=== PATIENT | male | born 1960 | race Caucasian/White ===

== ENCOUNTER 2016-06-20 11:16 | Emergency (ER) | payer OTHER ==
--- NOTE | 2016-06-20 12:01 | ED EKG INTERP ---
EKG Interpretation - EKG Time of EKG reading by physician:: 11:37 EKG Read and Signed by:: Steve Coffman EKG Interpretation (*Must complete 3 of following elements*): Normal Rate: 97 Rhythm: NSR [place]: normal QRS: normal NH Interval: normal ST Wave: normal Attestation - Scribe Verification/Attestation Scribe:: Camron Flores Acting as Scribe for:: Steve Coffman Scribe documention review:: This chart was documented by a scribe and accurately reflects the service the provider performed and the decisions made by the provider. Physician Attestation - Physician Attestation I, the provider, attest to the following statement:: Steve Coffman Physician documentation Attestation:: This documentation recorded by the scribe accurately reflects the service I personally performed and the decisions made by me.
[2016-06-20] MEDS ORDERED: ASPIRIN PO STA (12:05)
--- NOTE | 2016-06-20 12:31 | EKG Report ---
Test Performed on : 06/20/2016 11:37:31 AM Test Reason : cp/sob Blood Pressure : / mmHG Vent. Rate : 097 BPM Atrial Rate : 097 BPM P-R Int : 124 ms QRS Dur : 066 ms QT Int : 340 ms P-R-T Axes : 035 045 046 degrees QTc Int : 431 ms Normal sinus rhythm. with sinus arrhythmia. Normal ECG When compared with ECG of 02-NOV-2011 19:34, fusion complexes are no longer present Criteria for Septal infarct are no longer present Unconfirmed Result
--- NOTE | 2016-06-20 12:50 | Diag Imaging Result Document ---
PROCEDURE NAME: CHEST-2 VIEWS - 06/20/2016 2 VIEWS OF THE CHEST: FINDINGS: There is no evidence of acute cardiac or pulmonary disease. The lungs are not as well expanded as they were on 07/14/2012. IMPRESSION: No evidence of acute disease.
--- NOTE | 2016-06-20 13:14 | PROVIDER DOCUMENTATION ---
HPI-General Adult <MiMarkie SheffieldYohan - Last Filed: 06/20/16 15:35> - General Source: patient - History of Present Illness -Gen Adult Nature of Presenting Problems: patient is a 55 y/o M that presents to the ER with right lower rib pain that began last pm suddenly, pt reports pain worse with inspiration. denies n/v, fever/chills, or cough. Location of Pain/Injury: reports: chest (right rib) Pain Radiation: reports: no radiation Quality of Pain: reports: sharp Severity: reports: mild Onset/Duration: reports: abrupt, last night Timing: reports: still present, constant Context/Activities at Onset: reports: none Modifying Factors: worse with: breathing Associated Symptoms: reports: shortness of breath, pain with inspiration, other (rib pain). denies: back/neck pain, chest pain, cough, diarrhea, dizziness, fever/chills, genitourinary problems, nausea, vomiting Similar Symptoms Previously?: No Recently seen or treated by another doctor?: No <Camron Flores - Last Filed: 06/20/16 16:47> - General Chief Complaint: Rib Pain Stated Complaint: CP/SOB Time Seen by Provider: 06/20/16 12:04 Allergies/Adverse Reactions: Patient Allergies Allergy/AdvReac Type Severity Reaction Status Date / Time No Known Allergies Allergy Verified 03/17/16 21:31 Home Medications: Home Medication List Medication Instructions Recorded Confirmed Last Taken Type Esomeprazole [Nexium] 40 mg PO DAILY #30 capsule 03/17/16 06/20/16 06/19/16 Rx Ketorolac [Toradol] 10 mg PO Q8H PRN PRN #14 tablet 06/20/16 Unknown Rx Lisinopril 20 mg PO DAILY 06/20/16 06/20/16 06/19/16 History Lovastatin 20 mg PO DAILY 06/20/16 06/20/16 06/19/16 History Methylprednisolone [Medrol Dosepak] 4 mg PO DIRECTED #1 package 06/20/16 Unknown Rx Review of Systems - Adult - REVIEW OF SYSTEMS - ADULT Constitutional: denies: chills, fever Eyes: denies: decreased vision Ears, Nose, Mouth & Throat: denies: ear pain, sinus problem, throat pain, throat swelling Cardiovascular: reports: chest pain (right rib). denies: palpitations, syncope Respiratory: reports: pleurisy. denies: cough, wheezing Gastrointestinal: denies: abdominal pain, nausea, vomiting Genitourinary: reports: no symptoms reported Musculoskeletal: reports: no symptoms reported Integumentary: reports: no symptoms reported Neurological: reports: no symptoms reported Psychiatric: reports: no symptoms reported Endocrine: reports: no symptoms reported Hematologic/Lymphatic: reports: no symptoms reported Allergic/Immunologic: reports: no symptoms reported All Other Systems: Reviewed and Negative <Camron Flores - Last Filed: 06/20/16 16:47> Past History - Adult - PAST MEDICAL HISTORY-ADULT Review of Records: reports: Old Records Reviewed, Nursing Assessment Review, Medications Reviewed Cardiovascular: reports: HTN, hyperlipidemia Musculoskeletal: reports: chronic pain - PRIOR SURGERIES/PROCEDURES Surgical/Procedure History: reports: orthopedic (extremity) - IMMUNIZATION STATUS Childhood Immunizations: See Nurse Assessment Flu Vaccine: See Nurse Assessment - FAMILY HISTORY Family History: reviewed, not pertinent - SOCIAL HISTORY Smoking: cigarettes, less than 1 pack/day Living Situation: family <Camron Flores - Last Filed: 06/20/16 16:47> Physical Exam-General - PHYSICAL EXAM-ADULT Initial Vital Signs Reviewed: Yes - CONSTITUTIONAL General Appearance: alert, no apparent distress - EYES Eyes: PERRL/EOMI, pink conjunctivae - HEAD, EARS, NOSE, MOUTH & THROAT HENMT: normocephalic/atraumatic, moist mucous membranes, normal ENT inspection - NECK Neck: full range of motion, normal inspection - RESPIRATORY Respiratory: lungs clear, normal breath sounds, no respiratory distress, no accessory muscle use, pain on inspiration, other (tender to left chest wall) - CARDIOVASCULAR Cardiovascular: regular rate, rhythm, no edema, no murmur - GASTROINTESTINAL (ABDOMEN) Abdominal Exam: normal bowel sounds, non tender, soft, no organomegaly, no pulsatile mass - MUSCULOSKELETAL Back Exam: no CVA tenderness, no vertebral tenderness Extremity: normal range of motion, normal inspection, no pedal edema, normal capillary refill, pelvis stable - SKIN Integumentary: normal color, warm/dry - NEUROLOGIC Neurologic: grossly normal, no motor/sensory deficits - PSYCHIATRIC Psych/Mental Status: normal mood/affect, normal thought content, normal thought process, oriented x 3 <Camron Flores - Last Filed: 06/20/16 16:47> Progress - PLAN OF CARE/RESULTS Progress/Plan/Lab Results: Vital Signs Temp Pulse Resp BP Pulse Ox 06/20/16 16:00 77 23 119/71 99 06/20/16 15:00 77 13 114/73 97 06/20/16 11:40 97.7 F 93 H 20 106/64 100 No Known Allergies Allergy (Verified 03/17/16 21:31) Esomeprazole [Nexium] 40 mg PO DAILY #30 capsule 03/17/16 Ketorolac [Toradol] 10 mg PO Q8H PRN PRN #14 tablet 06/20/16 Lisinopril 20 mg PO DAILY 06/20/16 Lovastatin 20 mg PO DAILY 06/20/16 Methylprednisolone [Medrol Dosepak] 4 mg PO DIRECTED #1 package 06/20/16 Laboratory 06/20/16 06/20/16 06/20/16 16:02 16:02 14:00 WBC RBC Hgb Hct MCV MCH MCHC RDW Std Deviation Plt Count MPV Immature Gran % (Auto) Neut % (Auto) Lymph % (Auto) [place] % (Auto) Eos % (Auto) Baso % (Auto) Immature Gran # (Auto) Neut # (Auto) Lymph # (Auto) [place] # (Auto) Eos # (Auto) Baso # (Auto) PT INR PTT (Actin FS) D-Dimer Sodium Potassium Chloride Carbon Dioxide Anion Gap BUN Creatinine Estimated GFR/1.73 m2 BUN/Creatinine Ratio Glucose Calculated Osmolality Calcium Magnesium Total Bilirubin AST ALT Alkaline Phosphatase Creatine Kinase Troponin T < 0.010 Mdt-O-Vwipjjtzlxg Pept Total Protein Albumin Globulin Albumin/Globulin Ratio Lipase Urine Source CLEAN CATCH Urine Color YELLOW Urine Turbidity CLEAR Urine pH 6.5 Ur Specific [place] 1.007 Urine Protein NEGATIVE Ur Glucose (Stick) NEGATIVE Ur Ketones (Stick) NEGATIVE Urine Blood NEGATIVE Urine Nitrite NEGATIVE Urine Bilirubin NEGATIVE Urobilinogen Dipstick NORMAL Urine Leukocytes NEGATIVE Urine WBC (Auto) <10 Urine RBC (Auto) <10 U Epithel Cells (Auto) <10 Urine Bacteria (Auto) NEGATIVE Urine Opiates Screen PRESUMPTIVE POSITIVE A Ur Oxycodone Screen NONE DETECTED Ur Methadone, Qual NONE DETECTED Ur Barbiturates Screen NONE DETECTED Ur Phencyclidine Scrn NONE DETECTED Ur Amphetamines Screen NONE DETECTED U Benzodiazepines Scrn NONE DETECTED Urine Cocaine Screen NONE DETECTED U Cannabinoids Screen PRESUMPTIVE POSITIVE A 06/20/16 06/20/1606/20/17 14:00 14:00 14:00 WBC RBC Hgb Hct MCV MCH MCHC RDW Std Deviation Plt Count MPV Immature Gran % (Auto) Neut % (Auto) Lymph % (Auto) [place] % (Auto) Eos % (Auto) Baso % (Auto) Immature Gran # (Auto) Neut # (Auto) Lymph # (Auto) [place] # (Auto) Eos # (Auto) Baso # (Auto) PT 10.2 INR 0.96 PTT (Actin FS) 33.2 D-Dimer 0.47 Sodium Potassium Chloride Carbon Dioxide Anion Gap BUN Creatinine Estimated GFR/1.73 m2 BUN/Creatinine Ratio Glucose Calculated Osmolality Calcium Magnesium Total Bilirubin AST ALT Alkaline Phosphatase Creatine Kinase Troponin T The-P-Bonriohxgeg Pept 75 Total Protein Albumin Globulin Albumin/Globulin Ratio Lipase Urine Source Urine Color Urine Turbidity Urine pH Ur Specific [place] Urine Protein Ur Glucose (Stick) Ur Ketones (Stick) Urine Blood Urine Nitrite Urine Bilirubin Urobilinogen Dipstick Urine Leukocytes Urine WBC (Auto) Urine RBC (Auto) U Epithel Cells (Auto) Urine Bacteria (Auto) Urine Opiates Screen Ur Oxycodone Screen Ur Methadone, Qual Ur Barbiturates Screen Ur Phencyclidine Scrn Ur Amphetamines Screen U Benzodiazepines Scrn Urine Cocaine Screen U Cannabinoids Screen 06/20/16 06/20/16 14:00 14:00 WBC 11.69 H RBC 4.86 Hgb 15.1 Hct 43.7 MCV 89.9 MCH 31.1 H MCHC 34.6 RDW Std Deviation 12.6 Plt Count 256 MPV 8.9 Immature Gran % (Auto) 0.3 Neut % (Auto) 69.9 Lymph % (Auto) 19.8 L [place] % (Auto) 8.2 Eos % (Auto) 1.2 Baso % (Auto) 0.6 Immature Gran # (Auto) 0.03 Neut # (Auto) 8.17 H Lymph # (Auto) 2.32 [place] # (Auto) 0.96 H Eos # (Auto) 0.14 Baso # (Auto) 0.07 PT INR PTT (Actin FS) D-Dimer Sodium 136 Potassium 4.5 Chloride 97 L Carbon Dioxide 26 Anion Gap 13 BUN 12 Creatinine 1.0 Estimated GFR/1.73 m2 > 60 BUN/Creatinine Ratio 12 Glucose 88 Calculated Osmolality 271 Calcium 9.5 Magnesium 2.1 Total Bilirubin 0.75 AST 12 ALT 19 Alkaline Phosphatase 76 Creatine Kinase 162 Troponin T Mbn-L-Cwkhttevgea Pept Total Protein 7.9 Albumin 4.1 Globulin 3.8 Albumin/Globulin Ratio 1.1 Lipase 14 Urine Source Urine Color Urine Turbidity Urine pH Ur Specific [place] Urine Protein Ur Glucose (Stick) Ur Ketones (Stick) Urine Blood Urine Nitrite Urine Bilirubin Urobilinogen Dipstick Urine Leukocytes Urine WBC (Auto) Urine RBC (Auto) U Epithel Cells (Auto) Urine Bacteria (Auto) Urine Opiates Screen Ur Oxycodone Screen Ur Methadone, Qual Ur Barbiturates Screen Ur Phencyclidine Scrn Ur Amphetamines Screen U Benzodiazepines Scrn Urine Cocaine Screen U Cannabinoids Screen Orders Category Date Time Status Cardiac Monitoring DIRECTED Care 06/20/16 12:05 Active Saline Loc NOW Care 06/20/16 12:05 Active CHEST-2 VIEWS [RAD] Stat Exams 06/20/16 11:42 Completed CBC WITH ELECTRONIC DIFF [HEME] Stat Lab 06/20/16 14:00 Completed CK PROFILE [SP CHEM] Stat Lab 06/20/16 14:00 Completed COMPREHENSIVE METABOLIC PANEL [CHEM] Stat Lab 06/20/16 14:00 Completed D-DIMER [CHEM] Stat Lab 06/20/16 14:00 Completed LIPASE [CHEM] Stat Lab 06/20/16 14:00 Completed MAGNESIUM [CHEM] Stat Lab 06/20/16 14:00 Completed PRO B-NATRIURETIC PEPTIDE Stat Lab 06/20/16 14:00 Completed PROTIME WITH INR [COAG] Stat Lab 06/20/16 14:00 Completed PTT [COAG] Stat Lab 06/20/16 14:00 Completed TROPONIN T Stat Lab 06/20/16 14:00 Completed UA NIMS W/REFLEX CULT [URINALYSIS] Stat Lab 06/20/16 16:02 Completed URINE DRUG SCREEN Stat Lab 06/20/16 16:02 Completed Aspirin Med 06/20/16 12:05 Discontinued 325 mg PO STAT STA Ketorolac [Toradol] Med 06/20/16 14:09 Discontinued 30 mg IV NOW ONE Ketorolac [Toradol] Med 06/20/16 13:47 Discontinued 60 mg IM NOW ONE EKG [EKG] Stat Ther 06/20/16 11:31 Draft - XRAY 1 XRAY Study: Chest Impression: Normal XRAY Interpretation: nml <Camorn Flores - Last Filed: 06/20/16 16:47> Departure - Departure Time of Disposition Order: 15:35 Certified Medical Emergency: Emergent <Markie Stark - Last Filed: 06/20/16 15:35> <Camron Floers - Last Filed: 06/20/16 16:47> - Departure DIAGNOSIS: Pleurisy without effusion Disposition: HOME 01 Condition: Stable Additional Instructions: Heating pad to help with the pain. ED Follow Up Instructions: You have been treated by a care provider in the Emergency Department. These instructions are being provided to you so you can have an understanding of how to care for yourself upon discharge. Upon discharge from the Emergency Department, you are responsible for making arrangements for follow-up care by a physician of your choice. Take all prescribed medications as directed. Return to the Emergency Department immediately for any new or worsening symptoms. You may call the Physician Referral phone number at [phone] to obtain a list of Physicians who are taking new patients. Prescriptions: Methylprednisolone [Medrol Dosepak] 4 mg PO DIRECTED #1 package Ketorolac [Toradol] 10 mg PO Q8H PRN PRN #14 tablet PRN Reason: Pain Referrals: Nicolas Gomez [Primary Care Provider] - Forms: Return to School/Parent Work Instructions: Plechelysy, Gwzz-fk-Behu Attestation - Scribe Verification/Attestation Scribe:: Camron Flores Acting as Scribe for:: Markie Stark Scribe documention review:: This chart was documented by a scribe and accurately reflects the service the provider performed and the decisions made by the provider. - Physician/ TAZ Attestation Patient care was provided by Advanced Practice Provider:: Yes Advanced Practice Provider:: Markie Stark Advanced Practice Provider documentation review:: The Mid-level provider documentation, treatment plan and medical decision making was reviewed by the physician who agrees with all treatment and medical decision making by the MLP. <Camron Flores - Last Filed: 06/20/16 16:47> Physician Attestation - Physician Attestation I, the provider, attest to the following statement:: Markie Stark Physician documentation Attestation:: This documentation recorded by the scribe accurately reflects the service I personally performed and the decisions made by me. <Camron Flores - Last Filed: 06/20/16 16:47>
[2016-06-20] MEDS ORDERED: TORADOL IM ONE (13:47)
[2016-06-20] MEDS ORDERED: TORADOL IV ONE (14:09)
[2016-06-20 14:10] LABS: MANUAL DIFF NEEDED? NO
[2016-06-20 14:16] LABS: BASO% 0.6 % (0.0-0.8); EOS# 0.14 X1000 (0.0-0.7); EOS% 1.2 % (0.0-10.0); HEMATOCRIT 43.7 % (42.0-52.0); HEMOGLOBIN 15.1 g/dL (14.0-18.0); IMM GRAN# 0.03 X1000 (0.0-0.04); IMM GRAN% 0.3 % (0.0-0.5); LYMPH# 2.32 X1000 (1.2-3.4); LYMPH% 19.8 % (20.5-51.1); MCH 31.1 PG (27-31); MCHC 34.6 g/dL (33-37); MCV 89.9 FL (81-99); MONO# 0.96 X1000 (0.11-0.59); MONO% 8.2 % (1.7-9.3); MPV 8.9 FL (7.4-10.4); NEUT% 69.9 % (42.2-75.2); PLT 256 X1000 (130-400); RBC 4.86 XMIL (4.7-6.1)
[2016-06-20 14:27] LABS: INR 0.96; PROTIME 10.2 Seconds (9.2-11.7); PTT 33.2 Seconds (22.0-36.0)
[2016-06-20 14:41] LABS: AGAP 13; ALBUMIN 4.1 g/dL (3.5-5.0); ALKALINE PHOSPHATASE 76 U/L (32-122); BUN 12 mg/dL (8-22); CALCIUM 9.5 mg/dL (8.8-10.2); CHLORIDE 97 mmol/L (98-107); CK PROFILE 162 U/L (24-204); COSMO 271; GOT 12 U/L (10-34); GPT 19 U/L (10-44); LIPASE 14 U/L (13-60); MAGNESIUM 2.1 mg/dL (1.5-2.7); POTASSIUM 4.5 mmol/L (3.5-5.1); SODIUM 136 mmol/L (136-145); TCO2 26 mmol/L (25-35); TOTAL BILIRUBIN 0.75 mg/dL (0.20-1.00); TOTAL PROTEIN 7.9 g/dL (6.3-8.3)
[2016-06-20 16:06] LABS: URINE CULTURE NEEDED? NO; URINE MICRO REVIEW NEEDED? NO; URINE SOURCE CLEAN CATCH
[2016-06-20 16:13] VITALS: BP 119/71
[2016-06-20 16:22] LABS: BILIRUBIN URINE NEGATIVE (NEGATIVE); BLOOD URINE NEGATIVE (NEGATIVE); COLOR YELLOW; GLUCOSE URINE NEGATIVE (NEGATIVE); LEUKOCYTES URINE NEGATIVE (NEGATIVE); NITRITE URINE NEGATIVE (NEGATIVE); PH URINE 6.5; PROTEIN URINE NEGATIVE (NEGATIVE); SP GRAVITY URINE 1.007; TURBIDITY URINE CLEAR (CLEAR); UR EPITHELIAL CELLS <10 /HPF (<10); URINE BACTERIA NEGATIVE /HPF; URINE RBC <10 /HPF (<10); URINE WBC <10 /HPF (<10); UROBILINOGEN URINE NORMAL (NORMAL)
[2016-06-20 16:31] LABS: UR AMPHETAMINES QUAL NONE DETECTED (NONE DETECT); UR BARBITUATES QUAL NONE DETECTED (NONE DETECT); UR BENZODIAZEPIN QUAL NONE DETECTED (NONE DETECT); UR CANNABINOIDS QUAL PRESUMPTIVE POSITIVE (NONE DETECT); UR COCAINE QUAL NONE DETECTED (NONE DETECT); UR METHADONE QUAL NONE DETECTED (NONE DETECT); UR OPIATES QUAL PRESUMPTIVE POSITIVE (NONE DETECT); UR OXYCODONE QUAL NONE DETECTED (NONE DETECT); UR PCP QUAL NONE DETECTED (NONE DETECT)
== END 2016-06-20 16:20 | disposition home or self-care (01) ==
LOC: ED 11:16
DX: J90 Pleural effusion, not elsewhere classified (principal); R07.81 Pleurodynia; I10 Essential (primary) hypertension; E78.5 Hyperlipidemia, unspecified; G89.29 Other chronic pain; F17.210 Nicotine dependence, cigarettes, uncomplicated; Z79.899 Other long term (current) drug therapy
CPT/HCPCS: 71020; 80053; 81001; 82550; 83690; 83735; 83880; 84484; 85025; 85379; 85610; 85730; 93005; G0480; J1885; 80324; 80345; 80346; 80349; 80353; 80358; 80361; 80365; 83992

== ENCOUNTER 2016-06-30 01:50 | Inpatient (IN) ==
--- NOTE | 2016-06-30 02:05 | PROVIDER DOCUMENTATION ---
HPI-Respiratory General - General Source: patient - History of Present Illness-Resp Quality of Pain: reports: tightness Severity in ED: reports: moderate Onset/Duration: reports: just prior to arrival Timing: reports: still present Cough Quality/Degree: reports: moderate, dry cough Current Respiratory Medication Therapy: Initiated none Similar Symptoms Previously?: Yes Recently seen or treated by another doctor?: Yes <Armani Yusuf - Last Filed: 06/30/16 02:24> <Feroz Cali - Last Filed: 06/30/16 05:20> - General Stated Complaint: sob Time Seen by Provider: 06/30/16 02:00 Allergies/Adverse Reactions: Patient Allergies Allergy/AdvReac Type Severity Reaction Status Date / Time No Known Allergies Allergy Verified 03/17/16 21:31 Home Medications: Home Medication List Medication Instructions Recorded Confirmed Last Taken Type Esomeprazole [Nexium] 40 mg PO DAILY #30 capsule 03/17/16 06/30/16 06/29/16 Rx Ketorolac [Toradol] 10 mg PO Q8H PRN PRN #14 tablet 06/20/16 06/30/16 06/29/16 Rx Lisinopril 20 mg PO DAILY 06/20/16 06/30/16 06/29/16 History Lovastatin 20 mg PO DAILY 06/20/16 06/30/16 06/29/16 History Methylprednisolone [Medrol Dosepak] 4 mg PO DIRECTED #1 package 06/20/1606/29/16 Rx Cyclobenzaprine [Flexeril] 10 mg PO BID 06/30/16 06/30/16 06/29/16 History - History of Present Illness-Resp Nature of Presenting Problem: Pt is a 55 y/o M with SOB that began 45 minutes [employer] by EMS. EMS states on scene pt was 100% room air with SBP 126. Pt states he was seen in the ED 10 days ago for SOB and chest pain going to his back. Pt says he was sent home with pain meds and a dose pack. Pt said he felt better for a week and it suddenly came back tonight. Pt states he see Dr Gomez for his chronic back and neck pain. (Armani Yusuf) Review of Systems - Adult - REVIEW OF SYSTEMS - ADULT Constitutional: denies: chills, fever Eyes: reports: no symptoms reported Ears, Nose, Mouth & Throat: reports: no symptoms reported Cardiovascular: denies: chest pain, edema Respiratory: reports: cough, shortness of breath. denies: wheezing Gastrointestinal: reports: no symptoms reported Genitourinary: reports: no symptoms reported Musculoskeletal: reports: back pain (chronic), neck pain (chronic) Integumentary: reports: no symptoms reported Neurological: reports: no symptoms reported Psychiatric: reports: no symptoms reported Endocrine: reports: no symptoms reported Hematologic/Lymphatic: reports: no symptoms reported Allergic/Immunologic: reports: no symptoms reported All Other Systems: Reviewed and Negative <Armani Yusuf - Last Filed: 06/30/16 02:24> Past History - Adult - PAST MEDICAL HISTORY-ADULT Review of Records: reports: Old Records Reviewed, Nursing Assessment Review, Medications Reviewed Cardiovascular: reports: HTN, hyperlipidemia Musculoskeletal: reports: chronic pain - PRIOR SURGERIES/PROCEDURES Surgical/Procedure History: reports: orthopedic (extremity) - IMMUNIZATION STATUS Childhood Immunizations: See Nurse Assessment Flu Vaccine: See Nurse Assessment - FAMILY HISTORY Family History: reviewed, not pertinent - SOCIAL HISTORY Smoking: cigarettes, greater than 1 pack/day (2 ppd) Substance Use: marijuana Living Situation: alone <Armani Ysuuf - Last Filed: 06/30/16 02:24> Physical Exam-General - PHYSICAL EXAM-ADULT Initial Vital Signs Reviewed: Yes - CONSTITUTIONAL General Appearance: alert. negative: appears well (ill in appearance) - EYES Eyes: PERRL/EOMI, pink conjunctivae - HEAD, EARS, NOSE, MOUTH & THROAT HENMT: moist mucous membranes, normal ENT inspection, TMs normal, pharynx normal - NECK Neck: non-tender, full range of motion, supple, normal inspection - RESPIRATORY Respiratory: crackles (Left lower lobe), pain on inspiration - CARDIOVASCULAR Cardiovascular: normal peripheral pulses, regular rate, rhythm - GASTROINTESTINAL (ABDOMEN) Abdominal Exam: normal bowel sounds, soft, distended - MUSCULOSKELETAL Back Exam: normal inspection, no CVA tenderness, no vertebral tenderness Extremity: normal range of motion, non-tender, normal gait, normal inspection - SKIN Integumentary: normal color, normal turgor, warm/dry - NEUROLOGIC Neurologic: grossly normal, no motor/sensory deficits - PSYCHIATRIC Psych/Mental Status: normal mood/affect, normal thought content, normal thought process, oriented x 3 <Armani Yusuf Last Filed: 06/30/16 02:24> Progress - EKG 1 Time of EKG reading by physician:: 02:02 EKG Read and Signed by:: Feroz Cali EKG Interpretation (*Must complete 3 of following elements*): Abnormal Rate: 103 Rhythm: Sinus Tach Comments: Nonspecific T wave abnormality <Armani Yusuf - Last Filed: 06/30/16 02:24> - REASSESSMENT Reassessment #1 Time Reassessed: 05:18 Status: improving - XRAY 1 XRAY Study: Chest (copd chnges /possible lt side pneumonia) - CT/MRI 1 CT Study: Angiogram Impression: Abnormal (rt cavitary lx/lt lingulainfiltrate vs opcity/ possible bone malignancy //no pe), See EMR Report - CONSULTS/PCP/HOSPITALIST Notification #1 *Consult/PCP/Hospitalist*: dr wilcox Time Discussed: 05:20 <Feroz Cali - Last Filed: 06/30/16 05:20> Departure <Armani Yusuf - Last Filed: 06/30/16 02:24> - Departure Time of Disposition Order: 05:18 Certified Medical Emergency: Emergent <Feroz Cali - Last Filed: 06/30/16 05:20> - Departure DIAGNOSIS: Pleurisy without effusion, Pneumonia Disposition: ADMITTED INPATIENT 09 Condition: Stable Referrals: Nicolas Gomez [Primary Care Provider] - Attestation - Scribe Verification/Attestation Scribe:: rAmani Yusuf Acting as Scribe for:: Feroz Cali Scribe documention review:: This chart was documented by a scribe and accurately reflects the service the provider performed and the decisions made by the provider. <Armani Yusuf - Last Filed: 06/30/16 02:24> Physician Attestation
[2016-06-30] MEDS ORDERED: ASPIRIN PO STA (02:25)
[2016-06-30] MEDS ORDERED: XANAX PO ONE (02:28)
[2016-06-30] MEDS ORDERED: ASPIRIN PO ONE (02:28)
[2016-06-30] MEDS ORDERED: SODIUM CHLORIDE 0.9% INJ ONE (02:28)
[2016-06-30] MEDS ORDERED: PROTONIX IV ONE (02:28)
[2016-06-30] MEDS ORDERED: DUONEB (A & A) INH ONE (02:28)
[2016-06-30 03:06] LABS: MANUAL DIFF NEEDED? NO
[2016-06-30 03:10] LABS: BASO% 0.4 % (0.0-0.8); EOS% 2.5 % (0.0-10.0); HEMATOCRIT 43.3 % (42.0-52.0); HEMOGLOBIN 15.1 g/dL (14.0-18.0); IMM GRAN# 0.05 X1000 (0.0-0.04); IMM GRAN% 0.3 % (0.0-0.5); LYMPH# 2.21 X1000 (1.2-3.4); MCH 31.4 PG (27-31); MCHC 34.9 g/dL (33-37); MONO# 1.49 X1000 (0.11-0.59); MONO% 9.4 % (1.7-9.3); MPV 8.5 FL (7.4-10.4); NEUT% 73.4 % (42.2-75.2); PLT 293 X1000 (130-400); RBC 4.81 XMIL (4.7-6.1)
[2016-06-30 03:23] LABS: INR 0.94; PROTIME 9.6 Seconds (9.2-11.7); PTT 26.7 Seconds (22.0-36.0)
[2016-06-30 03:33] LABS: AGAP 15; ALBUMIN 3.8 g/dL (3.5-5.0); ALKALINE PHOSPHATASE 159 U/L (32-122); BUN 14 mg/dL (8-22); CALCIUM 9.6 mg/dL (8.8-10.2); CHLORIDE 99 mmol/L (98-107); CK PROFILE 51 U/L (24-204); COSMO 279; GOT 61 U/L (10-34); GPT 129 U/L (10-44); MAGNESIUM 2.1 mg/dL (1.5-2.7); POTASSIUM 4.9 mmol/L (3.5-5.1); SODIUM 140 mmol/L (136-145); TCO2 26 mmol/L (25-35); TOTAL BILIRUBIN 0.34 mg/dL (0.20-1.00)
[2016-06-30] MEDS: ROCEPHIN 1 GM/NS 50 ML IV ONE ×2 (03:45→04:05)
[2016-06-30 03:54] LABS: ALLEN TEST YES; BE 0.1 mmoll (-3.0-3.0); BLOOD TYPE ARTERIAL; DRAW SITE R RADIAL; METHB 1.6 % (0.0-1.5); O2(CT) 19.3 mL/dL (15.0-23.0); PCO2(98.6) 35 mmHg (35-45); PO2(98.6) 84 mmHg (60-100); SAMPLE BLOOD; SAO2 98.6 % (95.0-100.0); THB 14.7 g/dL (11.5-17.4); pH(98.6) 7.44 (7.35-7.45)
[2016-06-30 04:56] LABS: MODALITY ROOM AIR
--- NOTE | 2016-06-30 06:29 | HISTORY AND PHYSICAL ---
CHIEF COMPLAINT: Shortness of breath x1 week. HISTORY OF PRESENTING ILLNESS: A 55-year-old male with a history of hypertension, COPD, and GERD who presented to the emergency department with a 1-week history of progressive worsening shortness of breath. The patient apparently was in the ER about a week ago and at that time was given some steroids. However, he states that he did not improve. He started having more coughing symptoms and was more short of breath, and subsequently came to the emergency department. At the ER, he was evaluated. He continued to be dyspneic. He had a CAT scan of the chest done which was abnormal, showing suggestion of infiltrates and also the possibilities of malignancy. Due to his presenting symptoms, it was thought that he would need hospitalization for further management. At the time of my examination, he denied any headache, fever, chills, hemoptysis, or melena but complained of chest discomfort and shortness of breath. PAST MEDICAL HISTORY: Hypertension, COPD, GERD, hyperlipidemia. PAST SURGICAL HISTORY: None. ALLERGIES: No known drug allergies. CURRENT MEDICATIONS: As listed in the MAR. SOCIAL HISTORY: An 80 pack year history of smoking. Admits to social alcohol use. Admits to marijuana use. FAMILY HISTORY: No history of coronary artery disease. REVIEW OF SYSTEMS: Twelve point systems listed as in the HPI. Other systems negative. PHYSICAL EXAMINATION: GENERAL: Cooperative, friendly male. He is resting comfortably now. VITAL SIGNS: Temperature 98.1 degrees, pulse 105, respirations 19, blood pressure 114/83, he is saturating 100%. HEENT: Atraumatic, normocephalic. Extraocular movements intact. PERRLA. NECK: No masses. CHEST: Rhonchi. CARDIOVASCULAR: Regular rate and rhythm. ABDOMEN: Soft. Positive bowel sounds. EXTREMITIES: No edema. NEUROLOGIC: He is awake, alert, oriented x3. : No bladder distention. SKIN: Warm. LABORATORIES AND STUDIES: WBCs 15.84, hemoglobin 15.1, hematocrit 43.3, platelets 293,000. Sodium 140, potassium 4.9, chloride 99, CO2 is 26, BUN is 14, creatinine is 0.9, glucose is 87. ASSESSMENT: This is a 55-year-old male with a history of hypertension, chronic obstructive pulmonary disease, and gastroesophageal reflux disease who presented to the emergency department with a 1-week history of worsening shortness of breath. His symptoms were consistent with a chronic obstructive pulmonary disease exacerbation and along with that, he had abnormal CAT scan findings of his chest. Patient will need hospitalization for further management. 1. Chronic obstructive pulmonary disease exacerbation. 2. Chest pain. 3. Suspected pneumonia. 4. Abnormal CT of the chest, suggestive of malignancy. 5. Hypertension. PLAN: 1. We will admit the patient to the medical floor with telemetry. 2. Continue with DuoNebs, IV Solu-Medrol, IV antibiotics. 3. Continue with checking serial cardiac enzymes and echocardiogram. 4. We will check blood cultures and resume antibiotics. 5. We will consult pulmonary for further evaluation of abnormal CT of the chest. 6. We will monitor blood pressure closely and resume antihypertensive agents. 7. We will put patient on DVT prophylaxis with SCDs. 8. We will continue to follow and reassess.
[2016-06-30] MEDS: DUONEB (A & A) INH SCH ×5 (07:30→23:39)
--- NOTE | 2016-06-30 07:59 | Diag Imaging Result Document ---
PROCEDURE NAME: ANGIOGRAM/PULMONARY ARTERIES - 06/30/2016 CT PULMONARY ANGIOGRAM WITH INTRAVENOUS CONTRAST, 06/30/2016: A CT dose reduction protocol was used. COMPARISON: Previous chest x-rays, CT chest 11/02/2011. FINDINGS: Axial CT images of the chest were obtained after administering intravenous contrast. Coronal MIP images were generated. There is no pulmonary embolism. Heart and great vessels are normal. No adenopathy. Upper abdominal images are unremarkable. There is a round pleural-based infiltrate at the superior segment of the left lower lobe. This measures about 3 cm. There is a trace left pleural effusion. There is a small nodular infiltrate at the lateral right lower lobe as well. There is COPD unchanged from prior. Moderate degenerative changes of the thoracic spine. No acute or suspicious bony lesions. IMPRESSION: 1. Bilateral nodular infiltrates in the lungs. Trace left pleural effusion. Findings may represent infection, hematogenously spread septic emboli, or neoplasm. Correlate clinically. Recommend treatment and short-term followup chest CT within [address] [facility]
--- NOTE | 2016-06-30 08:29 | Diag Imaging Result Document ---
PROCEDURE NAME: CHEST-2 VIEWS - 06/30/2016 CHEST X-RAY, 2 VIEWS: COMPARISON: 06/20/2016. FINDINGS: There is a small left retro hilar infiltrate that is nearly impossible to see on chest x-ray, visible on the CT. There is also a small right basilar nodular infiltrate that was present on the previous chest x-ray. IMPRESSION: Small bilateral nodular infiltrates, essentially only visible on the chest CT.
[2016-06-30] MEDS: PRINIVIL PO SCH (09:29)
[2016-06-30] MEDS: PRILOSEC PO SCH (09:30)
[2016-06-30] MEDS: FLEXERIL PO SCH ×2 (09:31→20:32)
[2016-06-30] MEDS: MEVACOR PO SCH (09:31)
[2016-06-30] MEDS: LEVAQUIN 750 MG/D5W 150 ML IV SCH (09:31)
[2016-06-30] MEDS: SOLU-MEDROL IV SCH ×3 (09:32→23:30)
[2016-06-30] MEDS ORDERED: ROBITUSSIN PO PRN (11:26)
[2016-06-30] MEDS ORDERED: BIDEX PO SCH (13:00)
[2016-07-01] MEDS: DUONEB (A & A) INH SCH ×6 (03:47→23:29)
[2016-07-01] MEDS: PRILOSEC PO SCH (06:13)
[2016-07-01 07:11] LABS: HEMATOCRIT 39.6 % (42.0-52.0); HEMOGLOBIN 13.6 g/dL (14.0-18.0); IMM GRAN# 0.03 X1000 (0.0-0.04); IMM GRAN% 0.2 % (0.0-0.5); LYMPH# 0.54 X1000 (1.2-3.4); LYMPH% 3.4 % (20.5-51.1); MANUAL DIFF NEEDED? YES; MCH 30.8 PG (27-31); MCHC 34.3 g/dL (33-37); MCV 89.6 FL (81-99); MONO# 0.44 X1000 (0.11-0.59); MONO% 2.7 % (1.7-9.3); MPV 8.7 FL (7.4-10.4); NEUT% 93.7 % (42.2-75.2); PLT 269 X1000 (130-400); RBC 4.42 XMIL (4.7-6.1)
[2016-07-01 07:34] LABS: AGAP 17; BUN 14 mg/dL (8-22); CALCIUM 9.4 mg/dL (8.8-10.2); CHLORIDE 97 mmol/L (98-107); COSMO 276; POTASSIUM 4.3 mmol/L (3.5-5.1); SODIUM 136 mmol/L (136-145); TCO2 22 mmol/L (25-35)
[2016-07-01 07:59] LABS: BANDS 4 % (0-1); LYMPHS 2 % (21-51)
[2016-07-01] MEDS: PRINIVIL PO SCH (08:20)
[2016-07-01] MEDS: FLEXERIL PO SCH ×2 (08:20→23:56)
[2016-07-01] MEDS: SOLU-MEDROL IV SCH ×3 (08:20→23:56)
[2016-07-01] MEDS: LEVAQUIN 750 MG/D5W 150 ML IV SCH (08:20)
[2016-07-01] MEDS: MEVACOR PO SCH (08:20)
[2016-07-01] MEDS ORDERED: NICODERM PATCH TD PRN (11:56)
--- NOTE | 2016-07-01 14:59 | CONSULTATION ---
DATE OF CONSULTATION: 07/01/2016 REFERRING PHYSICIAN: Dr. Dennis Keith. CHIEF COMPLAINT: Shortness of breath. HISTORY OF PRESENT ILLNESS: This is a 55-year-old male with a past medical history of hypertension, COPD and GERD, that presented to the emergency room with complaints of a 1-week history of shortness of breath. Symptoms have progressively gotten worse and now he has a productive cough. Diagnostics in the ER reveal bilateral infiltrates with a possible neoplasm. The patient has been having also some chest pain associated with his shortness of breath, but denies any headache, fever, chills, hemoptysis or melena. REVIEW OF SYSTEMS: A 10-point review of systems was conducted. Pertinent as noted in the HPI, otherwise noncontributory. PAST MEDICAL HISTORY: As mentioned in HPI, otherwise noncontributory. PAST SURGICAL HISTORY: Denies. ALLERGIES: No known drug allergies. SOCIAL HISTORY: Eighty pack-year history of smoking. Social alcohol consumption and admits to use of marijuana. FAMILY HISTORY: Noncontributory. ACTIVE MEDICATIONS: 1. DuoNebs. 2. Flexeril. 3. Robitussin. 4. Levaquin. 5. Prinivil. 6. Mevacor. 7. Solu-Medrol. 8. Prilosec. PHYSICAL EXAMINATION: Vital Signs: Temperature 98.8, heart rate 104, respiratory rate 16 and blood pressure 115/53, oxygen saturation 98%. General: Awake, alert, sitting up in bed, no acute distress noted. HEENT: Normocephalic and atraumatic. PERRL. Cardiovascular: Regular rate and rhythm. S1, S2 present. Chest: Reduced entry. Abdomen: Soft, nontender. Bowel sounds present. Extremities: No edema. Neurologic: Alert and oriented x3. No focal deficits. LABS/INVESTIGATIONS: WBC 16.09, RBCs 4.42, hemoglobin 13.6, hematocrit 39.6, platelet count 269. Sodium 136, potassium 4.3, chloride 97, carbon dioxide 22, anion gap 17. BUN 14 , creatinine 0.9, glucose 171. A pulmonary arteriogram shows bilateral nodular infiltrates in the lungs, trace left pleural effusion. Findings may represent infection, hematogenous spread septic emboli or neoplasm, and COPD. ASSESSMENT AND PLAN: This is a 55-year-old male with a past medical history mentioned in the history of present illness that presented to the hospital with complaints of dyspnea and cough. Diagnostics show bilateral infiltrates and/or neoplasm and also chronic obstructive pulmonary disease. He is being admitted to the floor with telemetry, inhaled bronchodilators, intravenous steroids, intravenous antibiotics, as well as trend cardiac enzymes and electrocardiograms with an echocardiogram and blood cultures. Continue inhaled bronchodilators, antibiotics, steroids, gastrointestinal prophylaxis. Further recommendations pending diagnostics. The Chest CT images were reviewed, the findings can be observed closely and agree with current regimen. cardiac echo ordered. Dictated by DERECK Wilcox for Valeria Gomes MD MTDD
--- NOTE | 2016-07-01 15:09 | ECHO REPORT ---
ORDER DATE: 07/01/2016 INDICATIONS: Rule out infective endocarditis. FINDINGS: 1. Right atrium appears normal in size at 3.4 cm. 2. There is no significant tricuspid regurgitation identified. 3. Normal RV size and systolic function. 4. No significant pulmonic insufficiency. 5. Normal left atrial size at 3.7 cm. 6. No mitral prolapse. Trace mitral regurgitation. 7. Normal LV size, end-diastolic dimension of 4.5. No evidence of left ventricular hypertrophy. LV systolic function appears to be hyperdynamic with an estimated EF greater than 70%. No segmental wall motion abnormalities. 8. Aortic valve opens well. No evidence of stenosis or insufficiency. 9. The aorta appears normal in visualized segments. 10. No pericardial effusion seen. 11. The patient's heart rate appeared to be in the 100s to 110s during the course of the study.
--- NOTE | 2016-07-01 17:15 | PROGRESS NOTE ---
DATE: 07/01/2016 SUBJECTIVE: This patient states that he is feeling much better. He is not complaining of shortness of breath at this moment. He is still coughing. Pulmonary Department is on board. OBJECTIVE: Vital signs: Temperature 98.8, pulse 110, respiratory rate 15, blood pressure 115/53, oxygen saturation 98 on room air. HEENT: Head normocephalic. No trauma . PERRLA. Neck: Supple. No JVD. No masses. Central trachea. Chest: Bilateral scattered wheezing. No rales. Mild rhonchi at the bases bilaterally. Cardiovascular: Regular rate and rhythm. Tachycardic. No murmurs. Abdomen: Soft, nontender, nondistended. No hepatosplenomegaly. Extremities: No edema. No clubbing. No cyanosis. Neurological examination: The patient is alert and oriented x3. No focal neurological deficits. LABORATORY: WBC 16, hemoglobin 13.6, hematocrit 39.6, platelets 269, sodium 136, potassium 4.3, chloride 97, bicarbonate 22, BUN 14, creatinine 0.9, glucose 171, calcium 9.6. ASSESSMENT AND PLAN: 1. Chronic obstructive pulmonary disease exacerbation. This patient is getting better. Will continue with the same management for now. Pulmonary Department is following this patient. 2. Abnormal CT of the chest suggestive of pneumonia. Will continue with the same treatment. He is not complaining about chest pain or shortness of breath at this moment. Pulmonary Department has evaluated this patient. Pending recommendations. 3. Hypertension, stable. Continue with the same treatment. 4. Suspected pneumonia at the lower lung bases. This patient is already on antibiotics. Will continue with the same management. 5. Gastroesophageal reflux disease. Continue with same treatment.
[2016-07-02] MEDS: DUONEB (A & A) INH SCH ×6 (03:43→23:30)
[2016-07-02] MEDS: LEVAQUIN 750 MG/D5W 150 ML IV SCH (06:40)
[2016-07-02] MEDS: SOLU-MEDROL IV SCH ×3 (06:40→22:18)
[2016-07-02] MEDS: PRILOSEC PO SCH (06:41)
[2016-07-02 07:15] LABS: HEMATOCRIT 40.2 % (42.0-52.0); HEMOGLOBIN 13.7 g/dL (14.0-18.0); IMM GRAN# 0.08 X1000 (0.0-0.04); IMM GRAN% 0.4 % (0.0-0.5); LYMPH# 0.54 X1000 (1.2-3.4); LYMPH% 2.6 % (20.5-51.1); MANUAL DIFF NEEDED? YES; MCH 30.8 PG (27-31); MCHC 34.1 g/dL (33-37); MCV 90.3 FL (81-99); MONO# 0.82 X1000 (0.11-0.59); MONO% 3.9 % (1.7-9.3); MPV 8.9 FL (7.4-10.4); NEUT% 93.1 % (42.2-75.2); PLT 293 X1000 (130-400); RBC 4.45 XMIL (4.7-6.1)
[2016-07-02 07:39] LABS: AGAP 14; BUN 22 mg/dL (8-22); CALCIUM 9.6 mg/dL (8.8-10.2); CHLORIDE 99 mmol/L (98-107); COSMO 280; POTASSIUM 4.4 mmol/L (3.5-5.1); SODIUM 137 mmol/L (136-145); TCO2 24 mmol/L (25-35)
[2016-07-02 07:48] LABS: BANDS 4 % (0-1); LYMPHS 4 % (21-51); MONO 4 % (1-9)
[2016-07-02] MEDS ORDERED: ATIVAN IV ONE (09:15)
[2016-07-02] MEDS: FLEXERIL PO SCH ×2 (09:27→22:18)
[2016-07-02] MEDS: PRINIVIL PO SCH (09:27)
[2016-07-02] MEDS: MEVACOR PO SCH (09:27)
--- NOTE | 2016-07-02 16:03 | PROGRESS NOTE ---
DATE: 07/02/2016 SUBJECTIVE: This patient states that he is feeling better, he is not complaining of shortness of breath at this moment, he is still coughing and Pulmonary Department is on board, he states that during the night he could not sleep and he is asking for some kind of medication. He also is a little bit anxious but he calmed down because he received an Ativan x1. OBJECTIVE: Vital Signs: Temperature 97.6 degrees, pulse 102, respiratory rate 15, blood pressure 110/60, oxygen saturation 97% on 2 L of nasal cannula. HEENT: Head normocephalic. No trauma. PERRLA. Neck: Supple. No JVD. No masses. Central trachea. Chest: Bilateral scattered wheezing, no rales, mild rhonchi at the bases bilaterally. Cardiovascular: RRR. No murmurs. Tachycardic. Abdomen: Soft, nontender, nondistended. No hepatosplenomegaly. Extremities: No edema. No clubbing. No cyanosis. Neurological: The patient is alert and oriented x3. No focal neurological deficits. He looks anxious. LABORATORY: WBC 21.1, hemoglobin 13.7, hematocrit 40.2, platelets 293,000, sodium 137, potassium 4.4, chloride 99, bicarbonate 24, BUN 22, creatinine 0.9, glucose 155, calcium 9.6. ASSESSMENT AND PLAN: 1. COPD exacerbation. This patient is getting better. I will decrease the dose of the steroids from 80 IV t.i.d. to 40 IV t.i.d., and I will decrease the dose slowly. Pulmonary Department is following this patient. 2. Abnormal CT of the chest suggestive of malignancy we will continue with the same management. He is not complaining about chest pain. No shortness of breath at this moment. Pulmonary Department has evaluated this patient. Pending recommendations. 3. Hypertension, stable. Continue with the same management. 4. Suspected pneumonia at the lower lung bases. This patient is already on antibiotics. Will continue with the same management. 5. Gastroesophageal reflux disease. Continue with PPIs. 6. Insomnia. I will add Ambien to his medications p.r.n.
[2016-07-03] MEDS: AMBIEN PO PRN (01:34)
[2016-07-03] MEDS: DUONEB (A & A) INH SCH ×6 (04:09→23:32)
[2016-07-03 05:50] LABS: BASO% 0.1 % (0.0-0.8); EOS# 0.01 X1000 (0.0-0.7); EOS% 0.1 % (0.0-10.0); HEMATOCRIT 39.4 % (42.0-52.0); HEMOGLOBIN 13.4 g/dL (14.0-18.0); IMM GRAN# 0.08 X1000 (0.0-0.04); IMM GRAN% 0.5 % (0.0-0.5); LYMPH# 0.55 X1000 (1.2-3.4); LYMPH% 3.2 % (20.5-51.1); MANUAL DIFF NEEDED? YES; MCH 31.2 PG (27-31); MCV 91.6 FL (81-99); MONO# 0.65 X1000 (0.11-0.59); MONO% 3.7 % (1.7-9.3); MPV 8.9 FL (7.4-10.4); NEUT% 92.4 % (42.2-75.2); PLT 280 X1000 (130-400)
[2016-07-03 05:59] LABS: AGAP 13; BUN 19 mg/dL (8-22); CALCIUM 9.2 mg/dL (8.8-10.2); CHLORIDE 102 mmol/L (98-107); COSMO 282; LYMPHS 6 % (21-51); MONO 2 % (1-9); POTASSIUM 4.9 mmol/L (3.5-5.1); SODIUM 139 mmol/L (136-145); TCO2 24 mmol/L (25-35)
[2016-07-03] MEDS: PRILOSEC PO SCH (06:53)
[2016-07-03] MEDS: SOLU-MEDROL IV SCH (06:53)
[2016-07-03] MEDS: LEVAQUIN 750 MG/D5W 150 ML IV SCH (06:56)
--- NOTE | 2016-07-03 06:59 | EKG Report ---
Test Performed on : 07/02/2016 09:20:54 AM Test Reason : No Order in [employer] Blood Pressure : / mmHG Vent. Rate : 124 BPM Atrial Rate : 124 BPM P-R Int : 118 ms QRS Dur : 086 ms QT Int : 312 ms P-R-T Axes : 063 068 -77 degrees QTc Int : 448 ms Sinus tachycardia. T wave abnormality, consider inferior ischemia Abnormal ECG When compared with ECG of 30-JUN-2016 02:02, (Unconfirmed) Non-specific change in ST segment in Inferior leads Inverted T waves have replaced nonspecific T wave abnormality in Inferior leads Inverted T waves have replaced nonspecific T wave abnormality in Lateral leads Confirmed by Flako MCKENZIE, Oscar Mancuso ([id number]) on 07/05/2016 1:35:57 PM
[2016-07-03] MEDS: MEVACOR PO SCH (08:27)
[2016-07-03] MEDS: FLEXERIL PO SCH ×2 (08:27→23:15)
[2016-07-03] MEDS: PRINIVIL PO SCH (08:27)
--- NOTE | 2016-07-03 18:01 | PROGRESS NOTE ---
DATE: 07/03/2016 SUBJECTIVE: This patient feels much better today. He is not complaining of shortness of breath. He is still coughing but compared with admission it is much better. He still feels anxious and I will put this patient on Xanax low dose p.r.n. OBJECTIVE: Vital Signs: Temperature 97.7 degrees, pulse 112, respiratory rate 15, blood pressure 97/68, oxygen saturation 100% on room air. HEENT: Head normocephalic. No trauma. PERRLA. Neck: Supple. No JVD. No masses. Central trachea. Chest: Bilateral scattered wheezing. Mild rales at the bases. Cardiovascular: RRR. No murmurs. Tachycardic. Abdomen: Soft, nontender, nondistended. No hepatosplenomegaly. Extremities: No edema. No clubbing. No cyanosis. Neurological: The patient is alert and oriented x3. No focal neurological deficits. He looks anxious. LABORATORY: WBC 17.4, hemoglobin 13.4, hematocrit. 39.4, platelets 280,000. Sodium 139, potassium 4.9, chloride 102, bicarbonate 24, BUN 19, creatinine 0.9, glucose 133. ASSESSMENT AND PLAN: 1. Chronic obstructive pulmonary disease exacerbation. This patient is getting better. I switched the dose from IV steroids to p.o. steroids. Pulmonary department is following this patient. We will continue with oxygen, respiratory treatment, and pulmonary toilet. 2. Abnormal CT scan of the chest suggestive of malignancy. We will continue with the same management for now. Pulmonary department is following this patient. Pending recommendations. 3. Hypertension, stable. Continue with the same management. 4. Suspected pneumonia at the lower lung bases. This patient is already on antibiotics. Will continue with the same management. 5. Gastroesophageal reflux disease. Continue with PPIs. 6. Anxiety. He will be on Xanax p.r.n. 7. Insomnia. This patient is on Ambien p.r.n. as well. 8. Overall, this patient is doing much better. He is still tachycardic and probably the increase of the WBC is related to steroid use also. Pulmonary department is following this patient. He has a CT scan that showed a probability of malignancy. If pulmonary department is not going to do any kind of procedure at this moment, probably this patient can be discharged in 1 or 2 days.
[2016-07-04] MEDS: AMBIEN PO PRN (01:04)
[2016-07-04] MEDS: DUONEB (A & A) INH SCH ×2 (04:30→08:04)
[2016-07-04] MEDS: PRILOSEC PO SCH (06:18)
[2016-07-04] MEDS: LEVAQUIN 750 MG/D5W 150 ML IV SCH (06:26)
[2016-07-04 07:15] LABS: MANUAL DIFF NEEDED? NO
[2016-07-04 07:22] LABS: BASO% 0.1 % (0.0-0.8); EOS# 0.04 X1000 (0.0-0.7); EOS% 0.3 % (0.0-10.0); HEMATOCRIT 41.7 % (42.0-52.0); IMM GRAN# 0.14 X1000 (0.0-0.04); LYMPH# 2.74 X1000 (1.2-3.4); LYMPH% 20.1 % (20.5-51.1); MCH 30.8 PG (27-31); MCHC 33.6 g/dL (33-37); MCV 91.6 FL (81-99); MONO# 0.93 X1000 (0.11-0.59); MONO% 6.8 % (1.7-9.3); MPV 8.7 FL (7.4-10.4); NEUT% 71.7 % (42.2-75.2); PLT 302 X1000 (130-400); RBC 4.55 XMIL (4.7-6.1)
[2016-07-04 07:40] LABS: AGAP 12; BUN 21 mg/dL (8-22); CALCIUM 8.9 mg/dL (8.8-10.2); CHLORIDE 101 mmol/L (98-107); COSMO 279; POTASSIUM 4.2 mmol/L (3.5-5.1); SODIUM 138 mmol/L (136-145); TCO2 25 mmol/L (25-35)
[2016-07-04 08:37] VITALS: BP 123/80
--- NOTE | 2016-07-04 08:51 | CONSULTATION ---
DATE OF CONSULTATION: 07/04/2016 CONCLUSION: Patient is admitted to the hospital with bilateral pulmonary nodules. He is feeling better since he has been placed on antibiotics. I think the nodules represent infection rather than a malignancy. The patient has had an echocardiogram and they did not been find any evidence of vegetations involving the valves. Therefore, I do not think that the pulmonary nodules represent a hematogenous pneumonia secondary to endocarditis. RECOMMENDATIONS: The patient seems to be doing quite well on Levaquin. I would suggest switching him to p.o. Levaquin. I think he can be discharged today. I will follow him up in my office in 3 weeks. At that time, I will examine the patient and repeat his CT scan rather than just a chest x- ray because the nodules are small and may be missed if we just do a chest x-ray. DISCUSSION: The patient has a 2 month history of cough and shortness of breath. Initially, he coughed up a yellow sputum. However, this has stopped. His symptoms got worse and worse until he was admitted to the hospital this time and he feels much better since he has been in. As mentioned above, he had a pulmonary angiogram which showed bilateral pulmonary nodules. Chest x- ray showed some nodules also but they were not as clearly seen. Echocardiogram shows no vegetations. Blood cultures are sterile. The patient does have leukocytosis. However, his white count today is 13,650, hemoglobin 14, and platelet count 302,000. Creatinine is 0.9. GFR is greater than 60. PAST MEDICAL HISTORY/REVIEW OF SYSTEMS: Eyes and Ears: The patient has no loss of vision. He states that he has not been able to hear out of his left ear. He went to her personal physician and found that there was wax in the ear and recommended to the patient that he buy some medication across the counter to take care of the wax. Neck: No stiffness. Respiratory: As mentioned above, the patient had been coughing and was short of breath in the last 2 months, and got progressively worse but now he is better since he has been in the hospital. Cardiovascular: No chest pain or palpitations. Psychiatric: The patient has episodes of anxiety and depression. The remainder of the patient's review of systems was completed. GI: No nausea, vomiting, or diarrhea. : No dysuria or flank pain. Bones, Joints, Muscles: No joint swelling or muscle aching. Neurologic: No seizures or motor or sensory loss. Endocrine: The patient told me that he has borderline diabetes. He does not have thyroid disease. The remainder of the patient's review of systems was completed and was negative. PREVIOUS HOSPITALIZATIONS AND OPERATIONS: Has been admitted because of degenerative joint disease in the cervical and lumbar spine. He has had admission for abdominal pain. He has also been admitted because of anxiety and depression. He has had a colonoscopy at which time polyps were removed. MEDICAL DISEASES: Positive for borderline diabetes, hypertension, hyperlipidemia, degenerative joint disease, anxiety and depression, COPD, cigarette smoking. He also has hyperlipidemia. INFECTIOUS DISEASE HISTORY: Negative for pneumonia and UTI. FAMILY HISTORY: Positive for cancer, hypertension, stroke, and intracranial aneurysm. SOCIAL HISTORY: [place] He smokes cigarettes. He plans to stop smoking. He rarely drinks alcoholic beverages. He sometimes smokes marijuana. Does not take any other drugs. He is single. He lives alone. He is disabled. ALLERGIES: His chart lists no known allergies. HOME MEDICATIONS: Include the following: Medrol Dosepak, lovastatin, lisinopril, Toradol, Nexium, and Flexeril. PHYSICAL EXAMINATION: Vital Signs: Temperature is 97.9 degrees, pulse 99, respirations 20, blood pressure 137/73. General: This is a fairly healthy-appearing, middle-aged male who is in no acute distress. Head, Eyes, Ears, Nose, and Throat: Patient had horrible oral hygiene. He was missing many of his teeth and the ones he had, had caries and some were necrotic. The patient could hear when I talked but, as mentioned above, he did tell me that the hearing was reduced in his left ear because of wax buildup. Neck: No meningismus. Thorax: No increased AP diameter of the chest. Lungs: Clear to auscultation. Cardiovascular: Regular heart rate. Abdomen: Soft without masses or tenderness. Neurologic: Patient is alert. He can move his extremities. There is no tremor. His sensation is intact to touch. His memory, as regarding his medical history, was intact. Extremities: Patient had edema of both legs. Integument: No rash noted. Thank you for the consultation.
[2016-07-04] MEDS ORDERED: PREDNISONE PO SCH (09:00)
[2016-07-04] MEDS: FLEXERIL PO SCH (09:17)
[2016-07-04] MEDS: PRINIVIL PO SCH (09:17)
[2016-07-04] MEDS: MEVACOR PO SCH (09:20)
--- NOTE | 2016-07-05 20:06 | DISCHARGE SUMMARY ---
ADMISSION DATE: 06/30/2016 DISCHARGE DATE: 07/04/2016 CONSULTATIONS: 1. Dr. Gomes with Pulmonology. 2. Dr. Anthony Moran with Infectious Disease. PERTINENT PROCEDURES: 1. Echocardiogram showed an EF of greater than 70% with no valve abnormality. No vegetation. 2. Pulmonary arteriogram showed bilateral nodule infiltrates in the lungs, left pleural effusion. Findings may represent infection, and incidentally spread septic emboli or neoplasm. Recommended follow up with a chest CT in 1 month. DISCHARGE DIAGNOSES: 1. Chronic obstructive pulmonary disease exacerbation resolved. 2. Abnormal CT scan of the chest that questions suggestive of malignancy. After speaking with Dr. Anthony Moran he feels that the nodules represent infection rather than a malignancy and the patient will continue on p.o. antibiotics. Echocardiogram did not have any evidence of vegetation involving the valves. Improving. 3. Pneumonia. Patient's white count has improved continue. With p.o. antibiotics with Levaquin and will follow up with Dr. Anthony Moran as well as Dr. Gomes. 4. Hypertension stable. 5. GERD. Continue with PPI. 6. Insomnia while at hospital. HOSPITAL COURSE: Briefly Mr. Peterson is a 55-year-old male with a history of hypertension, COPD, GERD presented to the ED with 1-week history of progressing worsening shortness of breath. He had gone to the ED about a week prior to his admission and was given some steroids however he did not improve. He started having more coughing symptoms, shortness of breath. Came back to the ED where he was evaluated. He continued to be dyspneic. CT of the chest was abnormal showing infiltrate with the possibility of malignancy. The patient was admitted to the hospital, started on IV steroids, bronchodilators as well as IV antibiotics with a consult for Infectious Disease as well as Pulmonology. Echocardiogram did not show any vegetation. Pulmonology agreed with treatment per Dr. Anthony Moran. He felt that the patient was doing quite well on Levaquin and suggested switching him from IV to p.o. Levaquin with discharge home today and followup with him in his office in 3 weeks. At that time, he will do a repeat scan rather than just a chest x-ray because the nodules were small and may be missed if they just do a chest x-ray. The patient's white count has trended down. The patient will also follow up with Dr. Gomes on 07/12. VITAL SIGNS AT THE TIME OF DISCHARGE: Temperature is 97.8 degrees, heart rate 87, respiration 18, blood pressure 123/80. O2 is 100% on room air. DISCHARGE DIET: Regular. DISCHARGE MEDICATIONS: 1. Lisinopril 20 mg p.o. daily. 2. Lovastatin 20 mg p.o. daily. 3. 10 mg p.o. b.i.d. 4. Nexium 40 mg p.o. daily. 5. 1 each p.o. q.6 hours p.r.n. 6. Ambien 5 mg p.o. at bedtime. 7. Levaquin 500 mg p.o. daily. 8. Topamax 25 mg p.o. daily. FOLLOWUP: Patient is being discharged home. He will follow up with his primary care physician in 1 week. He will also follow up with Dr. Gomes on 07/12/[address] Anthony Moran on 07/25/[address] of the chest. The patient can return to the ED for any worsening of symptoms. Discharge time 30 minutes. Dictated by DERECK Dowd for Stephanie Melchor MD
== END 2016-07-04 11:38 | disposition home or self-care (01) | DRG 190 ==
LOC: EDBD → EDSEX → ED 01:50 → EDIPHOLD 07:38 → 3N 15:44
PROVIDERS: ATTEND Internal Medicine
DX: J44.1 Chronic obstructive pulmonary disease with (acute) exacerbation (principal); J18.9 Pneumonia, unspecified organism; J44.0 Chronic obstructive pulmonary disease with (acute) lower respiratory infection; I10 Essential (primary) hypertension; E78.5 Hyperlipidemia, unspecified; K21.9 Gastro-esophageal reflux disease without esophagitis; F17.210 Nicotine dependence, cigarettes, uncomplicated; G47.00 Insomnia, unspecified; F41.9 Anxiety disorder, unspecified; T38.0X5A Adverse effect of glucocorticoids and synthetic analogues, initial encounter; H61.22 Impacted cerumen, left ear; R73.03 Prediabetes; K02.9 Dental caries, unspecified; F32.9 Major depressive disorder, single episode, unspecified; Z80.9 Family history of malignant neoplasm, unspecified; Z82.3 Family history of stroke; Z82.49 Family history of ischemic heart disease and other diseases of the circulatory system; Z79.899 Other long term (current) drug therapy; K08.409 Partial loss of teeth, unspecified cause, unspecified class; M47.812 Spondylosis without myelopathy or radiculopathy, cervical region; M47.816 Spondylosis without myelopathy or radiculopathy, lumbar region
CPT/HCPCS: 71020; 71275; 80048; 80053; 82550; 82805; 83605; 83735; 83880; 84484; 85025; 85379; 85610; 85730; 87040; 93005; 93010; 93306; 94640; 94761; 96365; 96366; 96367; 96375; 96376; C9113; J0696; J2060; J2920; J2930; J7512; Q9967; S0164

== ENCOUNTER 2016-07-06 15:51 | Emergency (ER) ==
[2016-07-06] MEDS ORDERED: NITROGLYCERIN SL PRN (16:16)
[2016-07-06] MEDS ORDERED: ASPIRIN PO STA (16:16)
--- NOTE | 2016-07-06 16:18 | ED EKG INTERP ---
EKG Interpretation - EKG Time of EKG reading by physician:: 15:58 EKG Read and Signed by:: Feroz Cali EKG Interpretation (*Must complete 3 of following elements*): Normal Rate: 102 Rhythm: sinus tachycardia Attestation - Scribe Verification/Attestation Scribe:: Divine Reese Acting as Scribe for:: Feroz Cali Scribe documention review:: This chart was documented by a scribe and accurately reflects the service the provider performed and the decisions made by the provider.
[2016-07-06 16:38] LABS: BASO% 0.1 % (0.0-0.8); EOS# 0.43 X1000 (0.0-0.7); EOS% 2.7 % (0.0-10.0); HEMATOCRIT 47.5 % (42.0-52.0); HEMOGLOBIN 16.4 g/dL (14.0-18.0); LYMPH# 3.23 X1000 (1.2-3.4); LYMPH% 19.9 % (20.5-51.1); MANUAL DIFF NEEDED? NO; MCH 30.9 PG (27-31); MCHC 34.5 g/dL (33-37); MCV 89.6 FL (81-99); MONO# 1.15 X1000 (0.11-0.59); MONO% 7.1 % (1.7-9.3); MPV 8.6 FL (7.4-10.4); NEUT% 70.2 % (42.2-75.2); PLT 309 X1000 (130-400)
[2016-07-06 16:45] LABS: INR 0.99; PROTIME 10.4 Seconds (9.2-11.7); PTT 28.8 Seconds (22.0-36.0)
--- NOTE | 2016-07-06 16:46 | Diag Imaging Result Document ---
PROCEDURE NAME: CHEST-2 VIEWS - 07/06/2016 PA AND LATERAL RADIOGRAPH OF THE CHEST: COMPARISON: 06/30/2016. FINDINGS: There are unremarkable bowel gas and stool patterns. There is no evidence of bowel obstruction. There is no evidence of large volume free abdominal gas. There is no discrete organomegaly. The lungs are grossly clear. The cardiomediastinal silhouette and upper airway are grossly unremarkable. IMPRESSION: No evidence of acute chest or abdominal pathology.
[2016-07-06] MEDS ORDERED: DUONEB (A & A) INH ONE (17:01)
--- NOTE | 2016-07-06 17:08 | PROVIDER DOCUMENTATION ---
HPI-Chest Pain - General Source: patient - History of Present Illness-CP Location: reports: central Chest Pain Radiation: reports: no radiation Quality of Pain: reports: other (soreness) Onset/Duration: 1-3 hours ago Timing: gone now Context/Activities at Onset: reports: other (showering) Modifying Factors: improves with: nothing Associated Symptoms: denies: diaphoresis, fever/chills, nausea, vomiting Prior Chest Pain/Cardiac Workup: reports: stress test (negative) <Luz Elena Zhang - Last Filed: 07/06/16 18:07> <Leslee Acosta - Last Filed: 07/06/16 18:44> <Emily Griffiths - Last Filed: 07/06/16 19:17> - General Chief Complaint: Chest Pain Stated Complaint: Chest pain,Recent dx of pneumonia Time Seen by Provider: 07/06/16 16:05 Allergies/Adverse Reactions: Patient Allergies Allergy/AdvReac Type Severity Reaction Status Date / Time No Known Allergies Allergy Verified 07/06/16 16:10 Home Medications: Home Medication List Medication Instructions Recorded Confirmed Last Taken Type Esomeprazole [Nexium] 40 mg PO DAILY #30 capsule 03/17/16 07/06/16 06/29/16 Rx Lisinopril 20 mg PO DAILY 06/20/16 07/06/16 07/06/16 History Lovastatin 20 mg PO DAILY 06/20/16 07/06/16 07/06/16 History Cyclobenzaprine [Flexeril] 10 mg PO BID 06/30/16 07/06/16 07/06/16 History Butalbital/APAP/Caffeine [Fioricet] 1 each PO Q6H PRN #30 tablet 07/04/1607/06/16 Rx Levofloxacin [Levaquin] 500 mg PO DAILY #20 tablet 07/04/16 07/06/16 07/06/16 Rx Topiramate [Topamax] 25 mg PO DAILY #30 tablet 07/04/16 07/06/16 07/06/16 Rx Zolpidem [Ambien] 5 mg PO QHS #30 tablet 07/04/16 07/06/16 07/06/16 Rx - History of Present Illness-CP Nature of Presenting Problem: 55 y/o M former smoker with history of HTN, COPD, migraines presents via EMS after an episode of chest pain that occurred at approximately 2:30pm. Patient states he was taking a shower when he experienced SOB, soreness in central chest , dizziness. These symptoms made him anxious and he began experiencing tingling in all of his extremities. Symptoms lasted approx 30 minutes. He was discharged from [facility] 2 days ago for PNA. Patient states he had a negative stress test while in the hospital and has scheduled follow up with Dr. Martínez tomorrow. Upon review of chart, there is no record of cardiology consult or stress test, however he did have an echocardiogram which was normal. (Luz Elena Zhang) Review of Systems - Adult - REVIEW OF SYSTEMS - ADULT Constitutional: reports: no symptoms reported. denies: chills, fever Eyes: reports: no symptoms reported. denies: decreased vision, blurred vision Ears, Nose, Mouth & Throat: reports: no symptoms reported. denies: ear pain, hearing loss Cardiovascular: reports: see HPI Respiratory: reports: shortness of breath. denies: cough, dyspnea on exertion, pleurisy, wheezing Gastrointestinal: reports: no symptoms reported. denies: abdominal pain, nausea , vomiting Genitourinary: reports: no symptoms reported Musculoskeletal: reports: no symptoms reported. denies: back pain, neck pain Integumentary: reports: no symptoms reported. denies: itching, rash Neurological: reports: dizziness/vertigo, headache/migraines (history of migraines, denies GOMEZ currently). denies: numbness, paresthesia Psychiatric: reports: no symptoms reported Endocrine: reports: no symptoms reported Hematologic/Lymphatic: reports: no symptoms reported. denies: blood clots Allergic/Immunologic: reports: no symptoms reported All Other Systems: Reviewed and Negative <Luz Elena Zhang - Last Filed: 07/06/16 18:07> Past History - Adult - PAST MEDICAL HISTORY-ADULT Review of Records: reports: Nursing Assessment Review, Medications Reviewed Cardiovascular: reports: HTN, hyperlipidemia Musculoskeletal: reports: chronic pain - PRIOR SURGERIES/PROCEDURES Surgical/Procedure History: reports: orthopedic (extremity) - IMMUNIZATION STATUS Childhood Immunizations: See Nurse Assessment Flu Vaccine: See Nurse Assessment - FAMILY HISTORY Family History: reviewed, not pertinent <Luz Elena Zhang - Last Filed: 07/06/16 18:07> Physical Exam-General - PHYSICAL EXAM-ADULT Initial Vital Signs Reviewed: Yes - CONSTITUTIONAL General Appearance: appears well, alert, no apparent distress - EYES Eyes: PERRL/EOMI, pink conjunctivae - HEAD, EARS, NOSE, MOUTH & THROAT HENMT: normocephalic/atraumatic, moist mucous membranes - NECK Neck: non-tender, full range of motion, supple - RESPIRATORY Respiratory: chest non-tender, lungs clear, normal breath sounds, no pleuratic chest pain, no respiratory distress, no accessory muscle use - CARDIOVASCULAR Cardiovascular: normal peripheral pulses, regular rate, rhythm, no edema - GASTROINTESTINAL (ABDOMEN) Abdominal Exam: normal bowel sounds, non tender, soft - LYMPHATIC Lymphatic: no adenopathy - MUSCULOSKELETAL Back Exam: normal inspection Extremity: non-tender, normal inspection. 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 negative: facial droop, focal weakness, motor weakness, sensory deficit - PSYCHIATRIC Psych/Mental Status: normal mood/affect, normal thought content, normal thought process, oriented x 3 <Luz Elena Zhang - Last Filed: 07/06/16 18:07> Progress - REASSESSMENT Reassessment #1 Time Reassessed: 17:56 (Discussed with Dr. Cali, who recommends reassessment of patient after fluid bolus, repeat troponin and ekg, and follow up on serum lactate results.) Status: unchanged <Luz Elena Zhang - Last Filed: 07/06/16 18:07> - EKG 1 Time of EKG reading by physician:: 18:29 EKG Read and Signed by:: Armani Yen EKG Interpretation (*Must complete 3 of following elements*): Normal Rate: 94 Rhythm: NSR [place]: normal <Leslee Acosta - Last Filed: 07/06/16 18:44> <Emily Griffiths - Last Filed: 07/06/16 19:17> - PLAN OF CARE/RESULTS Progress/Plan/Lab Results: 07/06/16: Discussed patient with SHARI Malloy who will assume care and follow up on pending labs and dispo patient. Patient also discussed with Dr. Jarrod chua. (Luz Elena Zhang) Vital Signs Temp Pulse Pulse Pulse Pulse Resp BP 07/06/16 18:28 103 H 18 107/61 07/06/16 17:27 105 H 20 07/06/16 17:16 102 H 112 H 97 H 07/06/16 16:05 97.5 F L 105 H 20 121/84 BP BP BP Pulse Ox 07/06/16 18:28 99 07/06/16 17:27 07/06/16 17:16 103/70 92/73 92/62 07/06/16 16:05 99 No Known Allergies Allergy (Verified 07/06/16 16:10) Esomeprazole [Nexium] 40 mg PO DAILY #30 capsule 03/17/16 Lisinopril 20 mg PO DAILY 06/20/16 Lovastatin 20 mg PO DAILY 06/20/16 Cyclobenzaprine [Flexeril] 10 mg PO BID 06/30/16 Butalbital/APAP/Caffeine [Fioricet] 1 each PO Q6H PRN #30 tablet 07/04/16 Levofloxacin [Levaquin] 500 mg PO DAILY #20 tablet 07/04/16 Topiramate [Topamax] 25 mg PO DAILY #30 tablet 07/04/16 Zolpidem [Ambien] 5 mg PO QHS #30 tablet 07/04/16 I&O 07/05/16 07/06/16 07/07/16 06:59 06:59 06:59 Output Total 50 Balance -50 Laboratory 07/06/16 07/06/16 07/06/16 18:20 18:15 18:15 WBC RBC Hgb Hct MCV MCH MCHC RDW Std Deviation Plt Count MPV Neut % (Auto) Lymph % (Auto) [place] % (Auto) Eos % (Auto) Baso % (Auto) Neut # (Auto) Lymph # (Auto) [place] # (Auto) Eos # (Auto) Baso # (Auto) PT INR PTT (Actin FS) Sodium Potassium Chloride Carbon Dioxide Anion Gap BUN Creatinine Estimated GFR/1.73 m2 BUN/Creatinine Ratio Glucose Calculated Osmolality Calcium Magnesium Total Bilirubin AST ALT Alkaline Phosphatase Creatine Kinase 46 Troponin T < 0.010 Awx-R-Tnccrbyeibw Pept Total Protein Albumin Globulin Albumin/Globulin Ratio Plasma Lactate Urine Source CLEAN CATCH Urine Color STRAW Urine Turbidity CLEAR Urine pH 6.5 Ur Specific [place] 1.006 Urine Protein NEGATIVE Ur Glucose (Stick) NEGATIVE Ur Ketones (Stick) NEGATIVE Urine Blood NEGATIVE Urine Nitrite NEGATIVE Urine Bilirubin NEGATIVE Urobilinogen Dipstick NORMAL Urine Leukocytes NEGATIVE Urine WBC (Auto) <10 Urine RBC (Auto) <10 U Epithel Cells (Auto) <10 Urine Bacteria (Auto) NEGATIVE 07/06/16 07/06/16 07/06/16 17:50 16:07 16:07 WBC RBC Hgb Hct MCV MCH MCHC RDW Std Deviation Plt Count MPV Neut % (Auto) Lymph % (Auto) Hyde % (Auto) Eos % (Auto) Baso % (Auto) Neut # (Auto) Lymph # (Auto) Hyde # (Auto) Eos # (Auto) Baso # (Auto) PT 10.4 INR 0.99 PTT (Actin FS) 28.8 Sodium Potassium Chloride Carbon Dioxide Anion Gap BUN Creatinine Estimated GFR/1.73 m2 BUN/Creatinine Ratio Glucose Calculated Osmolality Calcium Magnesium Total Bilirubin AST ALT Alkaline Phosphatase Creatine Kinase Troponin T < 0.010 Efe-A-Juvvjlquuri Pept Total Protein Albumin Globulin Albumin/Globulin Ratio Plasma Lactate 1.4 Urine Source Urine Color Urine Turbidity Urine pH Ur Specific [place] Urine Protein Ur Glucose (Stick) Ur Ketones (Stick) Urine Blood Urine Nitrite Urine Bilirubin Urobilinogen Dipstick Urine Leukocytes Urine WBC (Auto) Urine RBC (Auto) U Epithel Cells (Auto) Urine Bacteria (Auto) 07/06/16 07/06/16 07/06/16 16:07 16:07 16:07 WBC 16.21 H RBC 5.30 Hgb 16.4 Hct 47.5 MCV 89.6 MCH 30.9 MCHC 34.5 RDW Std Deviation 12.6 Plt Count 309 MPV 8.6 Neut % (Auto) 70.2 Lymph % (Auto) 19.9 L Hyde % (Auto) 7.1 Eos % (Auto) 2.7 Baso % (Auto) 0.1 Neut # (Auto) 11.39 H Lymph # (Auto) 3.23 Hyde # (Auto) 1.15 H Eos # (Auto) 0.43 Baso # (Auto) 0.01 PT INR PTT (Actin FS) Sodium 133 L Potassium 4.7 Chloride 95 L Carbon Dioxide 23 L Anion Gap 15 BUN 22 Creatinine 1.0 Estimated GFR/1.73 m2 > 60 BUN/Creatinine Ratio 22 Glucose 87 Calculated Osmolality 269 Calcium 9.1 Magnesium 2.2 Total Bilirubin 0.58 AST 38 H ALT 261 H Alkaline Phosphatase 133 H Creatine Kinase 53 Troponin T Nvt-J-Lfethxqkldr Pept 18 Total Protein 6.6 Albumin 3.5 Globulin 3.1 Albumin/Globulin Ratio 1.1 Plasma Lactate Urine Source Urine Color Urine Turbidity Urine pH Ur Specific [place] Urine Protein Ur Glucose (Stick) Ur Ketones (Stick) Urine Blood Urine Nitrite Urine Bilirubin Urobilinogen Dipstick Urine Leukocytes Urine WBC (Auto) Urine RBC (Auto) U Epithel Cells (Auto) Urine Bacteria (Auto) Orders Category Date Time Status Cardiac Monitoring DIRECTED Care 07/06/16 16:16 Active Orthostatic Vital Signs NOW Care 07/06/16 17:09 Active Saline Loc NOW Care 07/06/16 16:16 Active CHEST-2 VIEWS [RAD] Stat Exams 07/06/16 16:16 Draft CBC WITH ELECTRONIC DIFF [HEME] Stat Lab 07/06/16 16:07 Completed CK PROFILE [SP CHEM] Stat Lab 07/06/16 16:07 Completed CK PROFILE [SP CHEM] Stat Lab 07/06/16 18:15 Completed COMPREHENSIVE METABOLIC PANEL [CHEM] Stat Lab 07/06/16 16:07 Completed LACTATE, PLASMA [CHEM] Stat Lab 07/06/16 17:50 Completed MAGNESIUM [CHEM] Stat Lab 07/06/16 16:07 Completed PRO B-NATRIURETIC PEPTIDE Stat Lab 07/06/16 16:07 Completed PROTIME WITH INR [COAG] Stat Lab 07/06/16 16:07 Completed PTT [COAG] Stat Lab 07/06/16 16:07 Completed TROPONIN T Stat Lab 07/06/16 16:07 Completed TROPONIN T Stat Lab 07/06/16 18:15 Completed UA Reflex [URINALYSIS W/POSS RFLX CULT] [URINALYSIS] Lab 07/06/16 18:20 Completed Stat 0.9% Sodium Chloride Inj [Ns] 1,000 ml Med 07/06/16 17:19 Discontinued IV 999 mls/hr Albuterol 2.5MG/Ipratrop 0.5MG [Duoneb (A & A)] Med 07/06/16 17:01 Discontinued 3 ml INH NOW ONE Aspirin Med 07/06/16 16:16 Discontinued 325 mg PO STAT STA Nitroglycerin Sl [Nitroglycerin] Med 07/06/16 16:16 Active 0.4 mg SL Q5M PRN PRN Aerosol Treatments Routine Oth 07/06/16 17:01 Completed Aerosol Treatments Stat Oth 07/06/16 17:01 Completed EKG [EKG] Stat Ther 07/06/16 16:16 Ordered EKG [EKG] Stat Ther 07/06/16 18:06 Ordered discussed findings with patient. States he is feeling much better. Verbalized understanding and agreement to follow up (Emily Griffiths) Departure <Luz Elena Zhang - Last Filed: 07/06/16 18:07> <Leslee Acosta - Last Filed: 07/06/16 18:44> - Departure Time of Disposition Order: 19:10 Certified Medical Emergency: Emergent <Emily Griffiths - Last Filed: 07/06/16 19:17> - Departure DIAGNOSIS: Elevated liver enzymes, Atypical chest pain Hypotension Qualifiers: Hypotension type: orthostatic hypotension Qualified Code(s): I95.1 - Orthostatic hypotension Disposition: HOME 01 Condition: Stable Additional Instructions: Follow up with Dr. Martínez as planned tomorrow Follow up with Dr. Arellano for your liver ED Follow Up Instructions: You have been treated by a care provider in the Emergency Department. These instructions are being provided to you so you can have an understanding of how to care for yourself upon discharge. Upon discharge from the Emergency Department, you are responsible for making arrangements for follow-up care by a physician of your choice. Take all prescribed medications as directed. Return to the Emergency Department immediately for any new or worsening symptoms. You may call the Physician Referral phone number at [phone] to obtain a list of Physicians who are taking new patients. Referrals: Nicolas Gomez [Primary Care Provider] - Di Arellano MD [STAFF PHYSICIAN] - Physician Attestation
[2016-07-06] MEDS ORDERED: NS 1,000 ML IV ONE (17:19)
[2016-07-06 17:30] LABS: AGAP 15; ALBUMIN 3.5 g/dL (3.5-5.0); ALKALINE PHOSPHATASE 133 U/L (32-122); BUN 22 mg/dL (8-22); CALCIUM 9.1 mg/dL (8.8-10.2); CHLORIDE 95 mmol/L (98-107); CK PROFILE 53 U/L (24-204); COSMO 269; GOT 38 U/L (10-34); GPT 261 U/L (10-44); MAGNESIUM 2.2 mg/dL (1.5-2.7); POTASSIUM 4.7 mmol/L (3.5-5.1); SODIUM 133 mmol/L (136-145); TCO2 23 mmol/L (25-35); TOTAL BILIRUBIN 0.58 mg/dL (0.20-1.00); TOTAL PROTEIN 6.6 g/dL (6.3-8.3)
[2016-07-06 18:29] VITALS: BP 107/61
[2016-07-06 18:40] LABS: URINE CULTURE NEEDED? NO; URINE MICRO REVIEW NEEDED? NO; URINE SOURCE CLEAN CATCH
[2016-07-06 18:44] LABS: BILIRUBIN URINE NEGATIVE (NEGATIVE); BLOOD URINE NEGATIVE (NEGATIVE); COLOR STRAW; GLUCOSE URINE NEGATIVE (NEGATIVE); LEUKOCYTES URINE NEGATIVE (NEGATIVE); NITRITE URINE NEGATIVE (NEGATIVE); PH URINE 6.5; PROTEIN URINE NEGATIVE (NEGATIVE); SP GRAVITY URINE 1.006; TURBIDITY URINE CLEAR (CLEAR); UROBILINOGEN URINE NORMAL (NORMAL)
[2016-07-06 18:45] LABS: UR EPITHELIAL CELLS <10 /HPF (<10); URINE BACTERIA NEGATIVE /HPF; URINE RBC <10 /HPF (<10); URINE WBC <10 /HPF (<10)
--- NOTE | 2016-07-07 05:19 | EKG Report ---
Test Performed on : 07/06/2016 6:29:45 PM Test Reason : cp Blood Pressure : / mmHG Vent. Rate : 094 BPM Atrial Rate : 094 BPM P-R Int : 118 ms QRS Dur : 070 ms QT Int : 346 ms P-R-T Axes : 061 044 055 degrees QTc Int : 432 ms Normal sinus rhythm. Normal ECG When compared with ECG of 02-JUL-2016 09:20, Non-specific change in ST segment in Inferior leads Non-specific change in ST segment in Lateral leads T wave inversion no longer evident in Inferior leads T wave inversion no longer evident in Lateral leads Unconfirmed Result
== END 2016-07-06 19:50 | disposition home or self-care (01) ==
LOC: EDBD → EDUNIT# → ED 15:51
DX: I95.1 Orthostatic hypotension (principal); R07.89 Other chest pain; R79.1 Abnormal coagulation profile; R06.02 Shortness of breath; R42 Dizziness and giddiness; I10 Essential (primary) hypertension; E78.5 Hyperlipidemia, unspecified; G89.29 Other chronic pain; Z79.899 Other long term (current) drug therapy
CPT/HCPCS: 36415; 71020; 80053; 81001; 82550; 83605; 83735; 83880; 84484; 85025; 85610; 85730; 93005; 94640; 99284; J7030